=== PATIENT | female | born 1945 | race African-American/Black ===

== ENCOUNTER 2021-11-07 20:51 | Inpatient (IN) | payer OTHER, MEDICAID ==
[~2021-11-07] VITALS: Ht 154.9 cm; Wt 49.9 kg
[2021-11-07 22:29] LABS: HEMATOCRIT. 39.9 % (36.0-48.0); HEMOGLOBIN. 12.7 g/dL (12.0-16.0); MEAN CORPUSCULAR HEMOGLOBIN 28.1 pg (28.0-32.0); MEAN CORPUSCULAR VOLUME 87.9 fL (81.0-99.0); MEAN PLATELET VOLUME 10.3 fl (7.4-10.4); PLATELET 126 x1000/uL (130-400); RED BLOOD CELL COUNT 4.54 mill/uL (4.2-5.4); RED CELL DISTRIBUTION WIDTH 15.5 % (11.6-14.6)
[2021-11-07] MEDS ORDERED: SODIUM CHLORIDE 0.9% 1,000 ML IV ONE (22:45)
[2021-11-07 22:58] LABS: PLATELET ESTIMATE SLIGHTLY DECREASED
[2021-11-07 23:58] LABS: CLARITY URINE CLOUDY (CLEAR); COLOR URINE YELLOW (YELLOW); KETONES URINE TRACE (NEGATIVE); LEUKOCYTE ESTERASE URINE TRACE (NEGATIVE); NITRITE URINE NEGATIVE (NEGATIVE); OCCULT BLOOD URINE 3+ (NEGATIVE); PH URINE 5.5 (4.5-8.0); PROTEIN URINE 4+ (NEGATIVE); SPECIFIC GRAVITY URINE 1.029 (1.005-1.030)
[2021-11-08 00:13] LABS: *AMPHETAMINES SCREEN URINE NEGATIVE (NEGATIVE); *BARBITURATES SCREEN URINE NEGATIVE (NEGATIVE); *BENZODIAZEPINES SCREEN URINE NEGATIVE (NEGATIVE); *COCAINE SCREEN URINE NEGATIVE (NEGATIVE); METHADONE URINE SCREEN NEGATIVE (NEGATIVE); OPIATES URINE SCREEN NEGATIVE (NEGATIVE)
[2021-11-08 00:14] LABS: CANNABINOID URINE SCREEN NEGATIVE (NEGATIVE); PHENCYCLIDINE URINE SCREEN NEGATIVE (NEGATIVE)
[2021-11-08] MEDS ORDERED: DILTIAZEM HCL 5MG/ML 5ML VIAL IV ONE (00:30)
[2021-11-08] MEDS ORDERED: VANCOMYCIN 1 G PREMIX 200 ML IV NR (01:00)
[2021-11-08] MEDS ORDERED: SODIUM CHLORIDE 0.9% 1000ML BAG (SEPSIS BOLUS) IV ONE (01:00)
[2021-11-08] MEDS ORDERED: VANCOMYCIN 1 G PREMIX 200 ML IV SCH (01:15)
[2021-11-08] MEDS ORDERED: PIPERACILLIN/TAZOBACTAM 3.375 G in DEXTROSE 5% WATER 50 ML IV SCH (01:15)
[2021-11-08] MEDS ORDERED: ACETAMINOPHEN 325MG TABLET PO PRN (01:15)
[2021-11-08] MEDS ORDERED: PIPERACILLIN/TAZ 3.375G PREMIX 50 ML IV NR (02:30)
[2021-11-08 02:42] LABS: CHLORIDE 110 mEq/L (98-107)
[2021-11-08 02:46] LABS: ETHANOL BLOOD < 10 mg/dL
[2021-11-08] MEDS ORDERED: ASPIRIN 300MG SUPP PR NR (03:45)
[2021-11-08 03:48] LABS: VITAMIN B12 SERUM 579 pg/mL (211-911)
[2021-11-08] MEDS: BLOOD SUGAR DIAGNOSTIC STRIP TEST SCH ×3 (06:47→17:14)
[2021-11-08] MEDS: INSULIN LISPRO 100 UNITS/ML SUBCUT SCH ×2 (07:00→12:00)
[2021-11-08] MEDS ORDERED: SODIUM CHLORIDE 0.9% 1,000 ML IV SCH (08:30)
[2021-11-08] MEDS ORDERED: BISACODYL 10MG SUPP PR PRN (08:45)
[2021-11-08] MEDS: DOCUSATE SODIUM 250MG CAPSULE PO SCH (09:00)
[2021-11-08] MEDS ORDERED: FAMOTIDINE 20MG TABLET PO SCH (09:00)
[2021-11-08] MEDS: ASPIRIN 81MG EC TABLET PO SCH (09:31)
[2021-11-08 12:10] LABS: CREATINE KINASE MB FRACTION 8.4 ng/mL (0.5-3.6)
[2021-11-08] MEDS: DEXTROSE 50% WATER 50ML SYRINGE IV PRN (13:01)
[2021-11-08] MEDS: ENOXAPARIN 60MG/0.6ML SYR SUBCUT SCH (15:25)
[2021-11-08] MEDS: PIPERACILLIN/TAZOBACTAM 3.375G in DEXT 5% WATER 50ML IV SCH ×2 (15:26→23:30)
[2021-11-08] MEDS: DEXT 5%/0.9% NACL 1,000 ML IV SCH (17:19)
[2021-11-08] MEDS: VANCOMYCIN 500 MG PREMIX 100 ML IV SCH (21:00)
[2021-11-08] MEDS: FAMOTIDINE 20MG/2ML VIAL IV SCH (22:24)
[2021-11-08] MEDS: SOTALOL HCL 80MG TABLET PO SCH (23:20)
[2021-11-08] MEDS: ATORVASTATIN CALCIUM 40MG TABLET PO SCH (23:20)
[2021-11-09] MEDS ORDERED: VANCOMYCIN 500 MG PREMIX 100 ML IV SCH (02:00)
[2021-11-09 05:31] LABS: BASOPHILS % 0.2 % (0.0-2.0); HEMOGLOBIN. 11.8 g/dL (12.0-16.0); LYMPHOCYTES % 14.7 % (20.0-50.0); MEAN CORPUSCULAR HEMOGLOBIN 28.1 pg (28.0-32.0); MEAN PLATELET VOLUME 10.4 fl (7.4-10.4); MONOCYTES % 6.9 % (2.0-8.0); NEUTROPHILS % 78.2 % (40.0-76.0); PLATELET 97 x1000/uL (130-400); RED CELL DISTRIBUTION WIDTH 16.1 % (11.6-14.6)
[2021-11-09 05:35] LABS: INR 1.1; PROTHROMBIN TIME 11.9 sec (9.6-11.0)
[2021-11-09] MEDS: DEXT 5%/0.9% NACL 1,000 ML IV SCH ×2 (06:20→20:01)
[2021-11-09] MEDS: BLOOD SUGAR DIAGNOSTIC STRIP TEST SCH ×5 (06:30→21:22)
[2021-11-09] MEDS: DEXTROSE 50% WATER 50ML SYRINGE IV PRN (06:44)
[2021-11-09] MEDS: PIPERACILLIN/TAZ 3.375G PREMIX 50 ML IV SCH ×3 (07:57→22:32)
[2021-11-09] MEDS: ASPIRIN 81MG EC TABLET PO SCH (10:26)
[2021-11-09] MEDS: SOTALOL HCL 80MG TABLET PO SCH ×2 (10:27→21:46)
[2021-11-09] MEDS: DOCUSATE SODIUM 250MG CAPSULE PO SCH (10:27)
[2021-11-09] MEDS: LOSARTAN POTASSIUM 25 MG TABLET PO SCH (11:15)
[2021-11-09] MEDS: ENOXAPARIN 60MG/0.6ML SYR SUBCUT SCH (14:30)
[2021-11-09] MEDS: VANCOMYCIN 500 MG PREMIX 100 ML IV SCH (15:14)
[2021-11-09] MEDS: FAMOTIDINE 20MG/2ML VIAL IV SCH (21:22)
[2021-11-09] MEDS: ATORVASTATIN CALCIUM 40MG TABLET PO SCH (21:45)
[2021-11-10] MEDS: PIPERACILLIN/TAZ 3.375G PREMIX 50 ML IV SCH ×2 (06:00→14:00)
[2021-11-10 06:04] LABS: BASOPHILS % 0.4 % (0.0-2.0); HEMATOCRIT. 38.2 % (36.0-48.0); HEMOGLOBIN. 12.6 g/dL (12.0-16.0); LYMPHOCYTES % 20.8 % (20.0-50.0); MEAN CORPUSCULAR HEMOGLOBIN 28.1 pg (28.0-32.0); MEAN CORPUSCULAR VOLUME 85.4 fL (81.0-99.0); MEAN PLATELET VOLUME 10.9 fl (7.4-10.4); MONOCYTES % 10.5 % (2.0-8.0); NEUTROPHILS % 68.3 % (40.0-76.0); PLATELET 101 x1000/uL (130-400); RED BLOOD CELL COUNT 4.47 mill/uL (4.2-5.4); RED CELL DISTRIBUTION WIDTH 15.2 % (11.6-14.6)
[2021-11-10] MEDS: BLOOD SUGAR DIAGNOSTIC STRIP TEST SCH ×3 (07:10→16:30)
[2021-11-10] MEDS: DEXT 5%/0.9% NACL 1,000 ML IV SCH (09:00)
[2021-11-10] MEDS: LOSARTAN POTASSIUM 25 MG TABLET PO SCH (09:26)
[2021-11-10] MEDS: SOTALOL HCL 80MG TABLET PO SCH ×2 (09:27→21:00)
[2021-11-10] MEDS: ASPIRIN 81MG EC TABLET PO SCH (09:27)
[2021-11-10] MEDS: VANCOMYCIN 500 MG PREMIX 100 ML IV SCH (09:27)
[2021-11-10] MEDS ORDERED: VANCOMYCIN 750 MG PREMIX 150 ML IV SCH (11:00)
[2021-11-10] MEDS: AMLODIPINE 10MG TABLET PO SCH (15:10)
[2021-11-10] MEDS: ENOXAPARIN 60MG/0.6ML SYR SUBCUT SCH (15:36)
[2021-11-10 16:12] LABS: CREATINE KINASE MB FRACTION 1.5 ng/mL (0.5-3.6)
[2021-11-10 18:30] VITALS: BP 183/103
[2021-11-10] MEDS: CLONIDINE 0.1MG TABLET PO PRN ×2 (18:53→18:58)
[2021-11-10] MEDS ORDERED: INFLUENZA VACCINE 05/PF 0.5 ML SYRINGE IM ONE (19:38)
[2021-11-10] MEDS ORDERED: PNEUMOCOCCAL 23-VAL P-SAC VAC 0.5 ML IM ONE (19:39)
[2021-11-10 20:00] VITALS: BP 190/90
[2021-11-10] MEDS: ATORVASTATIN CALCIUM 40MG TABLET PO SCH (21:00)
[2021-11-10] MEDS: FAMOTIDINE 20MG TABLET PO SCH (21:00)
[2021-11-10] MEDS ORDERED: DEXTROSE 50% WATER 50ML SYRINGE IV PRN (21:45)
[2021-11-10] MEDS ORDERED: LABETALOL 5MG/ML SYR 20 MG/4 ML SYRINGE IV PRN (22:00)
[2021-11-11] VITALS (7 sets, daily range): BP systolic 121–184; BP diastolic 73–97
[2021-11-11] MEDS ORDERED: ENALAPRIL 2.5MG/2ML VIAL 2ML IV SCH
[2021-11-11] MEDS: DEXT 5%/0.9% NACL 1,000 ML IV SCH ×3 (00:19→20:53)
[2021-11-11] MEDS: ENALAPRIL 1.25MG/ML VIAL 1ML IV PRN (00:20)
[2021-11-11] MEDS: INSULIN LISPRO 100 UNITS/ML SUBCUT SCH ×4 (08:10→20:55)
[2021-11-11] MEDS: BLOOD SUGAR DIAGNOSTIC STRIP TEST SCH ×4 (08:25→20:55)
[2021-11-11] MEDS: ASPIRIN 81MG EC TABLET PO SCH (08:55)
[2021-11-11] MEDS: LOSARTAN POTASSIUM 25 MG TABLET PO SCH (08:55)
[2021-11-11] MEDS: AMLODIPINE 10MG TABLET PO SCH (08:55)
[2021-11-11] MEDS: SOTALOL HCL 80MG TABLET PO SCH ×2 (09:00→20:55)
[2021-11-11 09:31] LABS: BASOPHILS % 0.2 % (0.0-2.0); HEMATOCRIT. 41.3 % (36.0-48.0); HEMOGLOBIN. 13.3 g/dL (12.0-16.0); LYMPHOCYTES % 27.3 % (20.0-50.0); MEAN CORPUSCULAR HEMOGLOBIN 27.8 pg (28.0-32.0); MEAN CORPUSCULAR VOLUME 86.3 fL (81.0-99.0); MEAN PLATELET VOLUME 11.1 fl (7.4-10.4); MONOCYTES % 11.5 % (2.0-8.0); PLATELET 95 x1000/uL (130-400); RED BLOOD CELL COUNT 4.79 mill/uL (4.2-5.4); RED CELL DISTRIBUTION WIDTH 15.5 % (11.6-14.6)
[2021-11-11] MEDS ORDERED: POTASSIUM CHLORIDE 20MEQ/PACKET PO SCH (13:45)
[2021-11-11] MEDS ORDERED: POTASSIUM CHLORIDE INJ 40 MEQ in DEXT 5% WATER 250 ML IV ONE (13:45)
[2021-11-11] MEDS: ENOXAPARIN 60MG/0.6ML SYR SUBCUT SCH (14:30)
[2021-11-11] MEDS: KCL 20MEQ/100ML PREMIX 100 ML IV SCH ×2 (15:54→18:15)
[2021-11-11] MEDS ORDERED: MEROPENEM 1,000 MG in SODIUM CHLORIDE 0.9% 100 ML IV SCH (17:45)
[2021-11-11] MEDS ORDERED: CEFTRIAXONE 1,000 MG in DEXTROSE 5% WATER 50 ML IV SCH (18:00)
[2021-11-11] MEDS: MEROPENEM 500MG in NORMAL SALINE 50ML IV SCH (20:53)
[2021-11-11] MEDS: ATORVASTATIN CALCIUM 40MG TABLET PO SCH (20:54)
[2021-11-11] MEDS: FAMOTIDINE 20MG TABLET PO SCH (20:55)
[2021-11-11] MEDS: HYDRALAZINE HCL 10MG TABLET PO SCH (21:53)
[2021-11-12] VITALS: BP 165/77
[2021-11-12] MEDS: ENALAPRIL 1.25MG/ML VIAL 1ML IV PRN (01:02)
[2021-11-12 04:00] VITALS: BP 133/79
[2021-11-12] MEDS: MEROPENEM 500MG in NORMAL SALINE 50ML IV SCH ×2 (05:03→17:15)
[2021-11-12] MEDS: HYDRALAZINE HCL 10MG TABLET PO SCH ×4 (05:04→21:14)
[2021-11-12] MEDS: BLOOD SUGAR DIAGNOSTIC STRIP TEST SCH ×4 (07:32→21:14)
[2021-11-12] MEDS: INSULIN LISPRO 100 UNITS/ML SUBCUT SCH ×4 (07:32→21:00)
[2021-11-12 08:40] LABS: BASOPHILS % 0.1 % (0.0-2.0); EOSINOPHILS % 0.1 % (0.0-5.0); HEMATOCRIT. 38.7 % (36.0-48.0); HEMOGLOBIN. 12.6 g/dL (12.0-16.0); LYMPHOCYTES % 30.8 % (20.0-50.0); MEAN CORPUSCULAR HEMOGLOBIN 27.9 pg (28.0-32.0); MEAN CORPUSCULAR VOLUME 85.7 fL (81.0-99.0); MEAN PLATELET VOLUME 11.7 fl (7.4-10.4); MONOCYTES % 14.2 % (2.0-8.0); NEUTROPHILS % 54.8 % (40.0-76.0); PLATELET 105 x1000/uL (130-400); RED BLOOD CELL COUNT 4.52 mill/uL (4.2-5.4); RED CELL DISTRIBUTION WIDTH 15.2 % (11.6-14.6)
[2021-11-12] MEDS: LOSARTAN POTASSIUM 25 MG TABLET PO SCH (09:20)
[2021-11-12] MEDS: ASPIRIN 81MG EC TABLET PO SCH (09:20)
[2021-11-12] MEDS: SOTALOL HCL 80MG TABLET PO SCH ×2 (09:21→21:14)
[2021-11-12] MEDS: AMLODIPINE 10MG TABLET PO SCH (09:21)
[2021-11-12] MEDS: ENOXAPARIN 60MG/0.6ML SYR SUBCUT SCH (09:22)
[2021-11-12 12:00] VITALS: BP 110/77
[2021-11-12] MEDS: DEXT 5%/0.9% NACL 1,000 ML IV SCH ×2 (12:22→23:59)
[2021-11-12 16:00] VITALS: BP 115/79
[2021-11-12 20:00] VITALS: BP 135/72
[2021-11-12] MEDS: ATORVASTATIN CALCIUM 40MG TABLET PO SCH (21:13)
[2021-11-12] MEDS: FAMOTIDINE 20MG TABLET PO SCH (21:14)
[2021-11-13] VITALS: BP 127/80
[2021-11-13 04:00] VITALS: BP 129/72
[2021-11-13] MEDS: HYDRALAZINE HCL 10MG TABLET PO SCH ×4 (05:16→21:36)
[2021-11-13] MEDS: MEROPENEM 500MG in NORMAL SALINE 50ML IV SCH ×2 (05:16→17:31)
[2021-11-13] MEDS: BLOOD SUGAR DIAGNOSTIC STRIP TEST SCH ×2 (07:36→13:12)
[2021-11-13] MEDS: INSULIN LISPRO 100 UNITS/ML SUBCUT SCH ×2 (07:36→13:10)
[2021-11-13 07:52] LABS: BASOPHILS % 0.2 % (0.0-2.0); EOSINOPHILS % 0.2 % (0.0-5.0); HEMATOCRIT. 34.2 % (36.0-48.0); HEMOGLOBIN. 11.3 g/dL (12.0-16.0); MEAN CORPUSCULAR HEMOGLOBIN 28.1 pg (28.0-32.0); MEAN CORPUSCULAR VOLUME 85.2 fL (81.0-99.0); MEAN PLATELET VOLUME 10.8 fl (7.4-10.4); MONOCYTES % 14.3 % (2.0-8.0); NEUTROPHILS % 52.3 % (40.0-76.0); PLATELET 98 x1000/uL (130-400); RED BLOOD CELL COUNT 4.02 mill/uL (4.2-5.4); RED CELL DISTRIBUTION WIDTH 15.1 % (11.6-14.6)
[2021-11-13] MEDS ORDERED: POTASSIUM CHLORIDE 20MEQ TABLET SR PO NR (09:00)
[2021-11-13] MEDS ORDERED: POTASSIUM CHLORIDE 20MEQ/PACKET PO NR (09:45)
[2021-11-13] MEDS: DOCUSATE SODIUM 250MG CAPSULE PO SCH (09:55)
[2021-11-13] MEDS: AMLODIPINE 10MG TABLET PO SCH (09:55)
[2021-11-13] MEDS: SOTALOL HCL 80MG TABLET PO SCH ×2 (09:56→21:36)
[2021-11-13] MEDS: LOSARTAN POTASSIUM 25 MG TABLET PO SCH (09:56)
[2021-11-13] MEDS: ASPIRIN 81MG EC TABLET PO SCH (09:56)
[2021-11-13] MEDS: ENOXAPARIN 60MG/0.6ML SYR SUBCUT SCH (09:57)
[2021-11-13 12:00] VITALS: BP 135/70
[2021-11-13] MEDS: DEXT 5%/0.9% NACL 1,000 ML IV SCH (13:12)
[2021-11-13 16:00] VITALS: BP 131/68
[2021-11-13 20:00] VITALS: BP 104/59
[2021-11-13] MEDS ORDERED: SULF1TAB48 MT (21:10)
[2021-11-13] MEDS: FAMOTIDINE 20MG TABLET PO SCH ×2 (21:38→21:41)
[2021-11-13] MEDS: ATORVASTATIN CALCIUM 40MG TABLET PO SCH ×2 (21:38→21:41)
[2021-11-14] VITALS: BP 112/79
[2021-11-14] MEDS: DEXT 5%/0.9% NACL 1,000 ML IV SCH ×2 (00:35→13:53)
[2021-11-14 04:00] VITALS: BP 129/69
[2021-11-14] MEDS: MEROPENEM 500MG in NORMAL SALINE 50ML IV SCH (05:15)
[2021-11-14] MEDS: HYDRALAZINE HCL 10MG TABLET PO SCH ×4 (06:00→22:23)
[2021-11-14 08:00] VITALS: BP 121/65
[2021-11-14 08:14] LABS: HEMOGLOBIN. 10.7 g/dL (12.0-16.0); MEAN CORPUSCULAR HEMOGLOBIN 28.5 pg (28.0-32.0); MEAN PLATELET VOLUME 11.2 fl (7.4-10.4); PLATELET 116 x1000/uL (130-400); RED BLOOD CELL COUNT 3.77 mill/uL (4.2-5.4)
[2021-11-14] MEDS: AMLODIPINE 10MG TABLET PO SCH (09:34)
[2021-11-14] MEDS: DOCUSATE SODIUM 250MG CAPSULE PO SCH (09:34)
[2021-11-14] MEDS: LOSARTAN POTASSIUM 25 MG TABLET PO SCH (09:36)
[2021-11-14] MEDS: ENOXAPARIN 60MG/0.6ML SYR SUBCUT SCH (09:36)
[2021-11-14] MEDS: SOTALOL HCL 80MG TABLET PO SCH (09:36)
[2021-11-14] MEDS: ASPIRIN 81MG EC TABLET PO SCH (09:36)
[2021-11-14 12:00] VITALS: BP 128/73
[2021-11-14 16:00] VITALS: BP 126/64
[2021-11-14] MEDS ORDERED: MAGNESIUM 1 G PREMIX 100 ML IV NR ×2 (17:30→20:00)
[2021-11-14] MEDS: MEROPENEM 1000MG in NORMAL SALINE 100ML IV SCH (17:32)
[2021-11-14 20:00] VITALS: BP 122/64
[2021-11-14] MEDS: ATORVASTATIN CALCIUM 40MG TABLET PO SCH ×2 (21:00→22:24)
[2021-11-14] MEDS: FAMOTIDINE 20MG TABLET PO SCH ×2 (21:00→22:23)
[2021-11-14] MEDS ORDERED: LORAZEPAM 2MG/ML CPJ IM PRN (23:15)
[2021-11-15] VITALS: BP 164/54
[2021-11-15] MEDS: DEXT 5%/0.9% NACL 1,000 ML IV SCH ×2 (02:15→13:59)
[2021-11-15] MEDS: MEROPENEM 1000MG in NORMAL SALINE 100ML IV SCH ×2 (05:51→18:06)
[2021-11-15] MEDS: HYDRALAZINE HCL 10MG TABLET PO SCH ×4 (06:00→22:35)
[2021-11-15 08:13] VITALS: BP 117/76
[2021-11-15] MEDS: ASPIRIN 81MG EC TABLET PO SCH (09:39)
[2021-11-15] MEDS: LOSARTAN POTASSIUM 25 MG TABLET PO SCH (09:39)
[2021-11-15] MEDS: DOCUSATE SODIUM 250MG CAPSULE PO SCH (09:39)
[2021-11-15] MEDS: AMLODIPINE 10MG TABLET PO SCH (09:40)
[2021-11-15] MEDS: ENOXAPARIN 60MG/0.6ML SYR SUBCUT SCH (09:40)
[2021-11-15 12:25] VITALS: BP 159/77
[2021-11-15 14:57] LABS: PLATELET ESTIMATE SLIGHTLY DECREASED
[2021-11-15 16:00] VITALS: BP 151/76
[2021-11-15 20:00] VITALS: BP 124/79
[2021-11-15] MEDS: FAMOTIDINE 20MG TABLET PO SCH ×2 (21:00→22:35)
[2021-11-15] MEDS: ATORVASTATIN CALCIUM 40MG TABLET PO SCH ×2 (21:00→22:35)
[2021-11-16] VITALS: BP 139/75
[2021-11-16] MEDS: DEXT 5%/0.9% NACL 1,000 ML IV SCH ×2 (03:32→15:06)
[2021-11-16 04:00] VITALS: BP 139/93
[2021-11-16] MEDS: MEROPENEM 1000MG in NORMAL SALINE 100ML IV SCH ×2 (05:37→17:13)
[2021-11-16 08:00] VITALS: BP 134/64
[2021-11-16] MEDS: MULTIVITAMINS,THER W-MINERALS TABLET PO SCH (08:46)
[2021-11-16] MEDS: LOSARTAN POTASSIUM 25 MG TABLET PO SCH (08:46)
[2021-11-16] MEDS: DOCUSATE SODIUM 250MG CAPSULE PO SCH (08:46)
[2021-11-16] MEDS: ASPIRIN 81MG EC TABLET PO SCH (08:47)
[2021-11-16] MEDS: ENOXAPARIN 60MG/0.6ML SYR SUBCUT SCH (08:47)
[2021-11-16] MEDS: AMLODIPINE 10MG TABLET PO SCH (08:47)
[2021-11-16] MEDS: METOPROLOL TARTRATE 25MG TABLET PO SCH ×2 (10:15→21:00)
[2021-11-16 12:00] VITALS: BP 102/66
[2021-11-16] MEDS: HYDRALAZINE HCL 10MG TABLET PO SCH ×2 (14:00→22:00)
[2021-11-16 16:00] VITALS: BP 128/74
[2021-11-16 20:46] VITALS: BP 101/53
[2021-11-16] MEDS ORDERED: APIXABAN 5 MG TABLET PO SCH (21:00)
[2021-11-16] MEDS: ATORVASTATIN CALCIUM 40MG TABLET PO SCH (21:06)
[2021-11-16] MEDS: FAMOTIDINE 20MG TABLET PO SCH (21:06)
[2021-11-17 00:20] VITALS: BP 161/71
[2021-11-17 04:00] VITALS: BP 163/91
[2021-11-17] MEDS: DEXT 5%/0.9% NACL 1,000 ML IV SCH ×2 (04:05→16:31)
[2021-11-17] MEDS: HYDRALAZINE HCL 10MG TABLET PO SCH ×2 (06:37→14:28)
[2021-11-17] MEDS: MEROPENEM 1000MG in NORMAL SALINE 100ML IV SCH (06:37)
[2021-11-17 08:00] VITALS: BP 115/75
[2021-11-17] MEDS ORDERED: APIXABAN 5 MG TABLET PO SCH (09:00)
[2021-11-17] MEDS: AMLODIPINE 10MG TABLET PO SCH (09:17)
[2021-11-17] MEDS: LOSARTAN POTASSIUM 25 MG TABLET PO SCH (09:17)
[2021-11-17] MEDS: MULTIVITAMINS,THER W-MINERALS TABLET PO SCH (09:17)
[2021-11-17] MEDS: ASPIRIN 81MG EC TABLET PO SCH (09:17)
[2021-11-17] MEDS: DOCUSATE SODIUM 250MG CAPSULE PO SCH (09:17)
[2021-11-17] MEDS: METOPROLOL TARTRATE 25MG TABLET PO SCH (09:18)
[2021-11-17 11:19] LABS: BASOPHILS % 0.2 % (0.0-2.0); EOSINOPHILS % 0.6 % (0.0-5.0); HEMOGLOBIN. 11.7 g/dL (12.0-16.0); MEAN CORPUSCULAR HEMOGLOBIN 28.2 pg (28.0-32.0); MEAN CORPUSCULAR VOLUME 86.6 fL (81.0-99.0); MEAN PLATELET VOLUME 10.5 fl (7.4-10.4); MONOCYTES % 11.2 % (2.0-8.0); PLATELET 217 x1000/uL (130-400); RED BLOOD CELL COUNT 4.16 mill/uL (4.2-5.4); RED CELL DISTRIBUTION WIDTH 15.3 % (11.6-14.6)
[2021-11-17 12:00] VITALS: BP 140/69
[2021-11-17] MEDS ORDERED: POTASSIUM CHLORIDE INJ 40 MEQ in DEXT 5% WATER 250 ML IV ONE (13:45)
[2021-11-17] MEDS ORDERED: LIP40 PO (13:47)
[2021-11-17] MEDS ORDERED: HYDR-4133 PO (13:47)
[2021-11-17] MEDS ORDERED: LOSA25TA3 PO (13:47)
[2021-11-17] MEDS ORDERED: AMLO10TA80 PO (13:47)
[2021-11-17] MEDS ORDERED: APIX5TAB PO (13:47)
[2021-11-17] MEDS ORDERED: METO25TA6 PO (13:47)
[2021-11-17] MEDS ORDERED: ASPI-1406 PO (13:47)
[2021-11-17] MEDS ORDERED: KCL 20MEQ/100ML PREMIX 100 ML IV SCH (15:00)
[2021-11-17 15:31] VITALS: BP 130/91
[2021-11-17 17:29] VITALS: BP 130/91
== END 2021-11-17 18:30 | disposition home or self-care (01) | DRG 871 ==
LOC: ER 20:51 → MICUSO 11-08 01:07 → EDBEDREQ 11-08 01:18 → EDBEDREQDT 11-08 01:18 → EDBEDREQTM 11-08 01:18 → MICUSO 11-10 00:45 → 7WST 11-10 17:52
PROVIDERS: ADMIT Internal Medicine; ATTEND Internal Medicine
DX: A41.89 Other specified sepsis (principal); U07.1 COVID-19; J12.82 Pneumonia due to coronavirus disease 2019; G93.40 Encephalopathy, unspecified; N17.9 Acute kidney failure, unspecified; M62.82 Rhabdomyolysis; E87.2 Acidosis; I24.8 Other forms of acute ischemic heart disease; I69.351 Hemiplegia and hemiparesis following cerebral infarction affecting right dominant side; I48.92 Unspecified atrial flutter; N39.0 Urinary tract infection, site not specified; D69.6 Thrombocytopenia, unspecified; I11.9 Hypertensive heart disease without heart failure; E78.5 Hyperlipidemia, unspecified; K56.41 Fecal impaction; I48.0 Paroxysmal atrial fibrillation; D25.9 Leiomyoma of uterus, unspecified; H44.522 Atrophy of globe, left eye; R65.20 Severe sepsis without septic shock; N26.1 Atrophy of kidney (terminal); B96.20 Unspecified Escherichia coli [E. coli] as the cause of diseases classified elsewhere; E83.42 Hypomagnesemia; H54.7 Unspecified visual loss
CPT/HCPCS: 36415; 71045; 74176; 80048; 80053; 80061; 80202; 80305; 80320; 81003; 82550; 82553; 82607; 82728; 82962; 83036; 83605; 83615; 83735; 83880; 84145; 84439; 84443; 84484; 85025; 86140; 87186; 87426; 92610; 93005; 99291; J0696; J1650; J2060; J2185; J2543; J3370; J3475; J3480; J3490; J7030; J7042; J7060; A4315; G0480